=== PATIENT | female | born 1940 | race Two or more races ===

== ENCOUNTER → 2018-08-23 | Emergency (ER) | payer OTHER ==
[~2018-08-23] VITALS: Ht 160 cm; Wt 63.5 kg
[~2018-08-23] MED LIST: ADVAIR 2501 DISK W/1 IH; COZAAR25 MG; DEXILANT30 MG PO; DILTIAZEM ER120 M3; GABAPENTIN100 M1; GLIMEPIRIDE4 MG; IOPHEN DM-100 MG/5 M PO; LASIX20 MG PO; MEDROLPACK PO; METFORMIN HCL1000 MG; NABUMETONE500 MG PO; NAPROSYN125 MG/5 M; NEURONTIN250 MG/5 M; PERCOCET 5/3251 TAB PO; PULMICORT180 MCG/AE IH; REGLAN5 MG/5 ML; SINGULAIR10 MG PO; TESSALON PERLE100 M1 PO; TUSICOF CAPLET1 EACH PO; VENTOLIN HFA18 GM IH; XOPENEX CO1.25 MG/0. IH; XOPENEX HFA15 GM IH
== END | disposition home or self-care (01) ==
LOC: ER 10:25 → CPU-OBS 10:37 → ER 10:37
DX: R07.89 Other chest pain (principal)

== ENCOUNTER 2018-10-13 07:56 | Outpatient (CLI) | payer OTHER | END 2018-10-13 08:02 | disposition home or self-care (01) | LOC: NUCLEAR 07:56 | DX: I87.2 Venous insufficiency (chronic) (peripheral) (principal) ==

== ENCOUNTER 2019-01-16 09:13 | Outpatient (CLI) | payer OTHER | END 2019-01-16 09:15 | disposition home or self-care (01) | LOC: RAD 09:13 | DX: I15.8 Other secondary hypertension (principal); I10 Essential (primary) hypertension ==

== ENCOUNTER → 2019-05-30 | Outpatient (CLI) | payer OTHER | END | disposition home or self-care (01) | LOC: TOM 11:28 | DX: I69.820 Aphasia following other cerebrovascular disease (principal) ==